=== PATIENT | female | born 1985 | race Caucasian/White ===

== ENCOUNTER → 2019-03-28 | Outpatient (CLI) | payer BC, SELFPAY ==
[2018-10-05 08:33] VITALS: BMI 29.9
[2019-03-28 10:41] LABS: Absolute Lymphocyte Count 0.81 X10^3/uL (0.83-4.51); Absolute Neutrophil Count 3.7 X10^3/uL (2.0-7.7); Basophil# 0.03 X10^3/uL; Basophil% 0.6 % (0-1); Eosinophil# 0.16 X10^3/uL; Eosinophils% 3.1 % (0-5); Hematocrit 42.4 % (37-47); Lymphocyte # 0.81 X10^3/ul (4.0); Lymphocyte % 15.9 % (19-41); Mean Corpuscular Hgb 29.2 pg (27.0-32.0); Mean Corpuscular Volume 88.3 fL (81-99); Mean Platelet Vol. 10.2 fl (6.2-12.0); Monocyte% 7.8 % (0-10); NRBC Flagged by Analyzer 0 % (0-5); Neutrophil % 72.4 % (47-70); Platelet Count 222 K/mm3 (150-450); RBC Distribution Width CV 12.9 % (11.6-14.6); White Blood Count 5.1 K/mm3 (4.4-11.0)
[2019-03-28 11:20] LABS: Anion Gap 8 (5-15); BUN 16 mg/dL (7-18); BUN/Creat Ratio 15.8 RATIO (10-20); Calcium,Total 9.1 mg/dL (8.5-10.1); Chloride 107 mmol/L (98-107); Cholesterol 163 mg/dL (200); Creatinine, Serum 1.01 mg/dL (0.55-1.02); EST Glomerular Filtration Rate 66 mL/min (>60); Est Glom Filt Rate - Afr Amer 80 mL/min (>60); Glucose 90 mg/dL (74-106); High Density Lipoprotein 50 mg/dL; Sodium Level 141 mmol/L (136-145); Thyroid Stim Hormone (TSH) 1.95 uIU/mL (0.358-3.74); Triglycerides 110 mg/dL; Very Low Density Lipoprotein 22 mg/dL (5-40)
[2019-03-28 12:55] LABS: Vitamin D,25 Hydroxy 38.2 ng/mL (29.95-100.01)
== END | disposition home or self-care (01) ==
LOC: MFPLAB 08:28
PROVIDERS: Family Provider Family Medicine; PCP Family Medicine; Referring Provider Family Medicine; Visit Provider Family Medicine
DX: Z00.00 Encounter for general adult medical examination without abnormal findings (principal)
CPT/HCPCS: 36415; 80048; 80061; 82306; 84443; 85025

== ENCOUNTER → 2019-10-18 | Outpatient (CLI) | payer BC, SELFPAY ==
[2018-10-05 08:33] VITALS: BMI 29.9
[2019-10-24 08:09] LABS: Alternaria alternata <0.10 kU/L (Class 0); Aspergillus fumigatus <0.10 kU/L (Class 0); Bahia Grass <0.10 kU/L (Class 0); Bermuda Grass <0.10 kU/L (Class 0); Bluegrass, Kentucky <0.10 kU/L (Class 0); Cat Hair/Dander, Standard <0.10 kU/L (Class 0); Cedar, Mountain <0.10 kU/L (Class 0); Cladosporium herbarum <0.10 kU/L (Class 0); Cockroach, American <0.10 kU/L (Class 0); D farinae Mite 0.54 kU/L (Class I); Dog Epithelia <0.10 kU/L (Class 0); Elm, American White <0.10 kU/L (Class 0); Hazelnut Tree <0.10 kU/L (Class 0); Hickory, White <0.10 kU/L (Class 0); Johnson Grass <0.10 kU/L (Class 0); Maple/Box Elder <0.10 kU/L (Class 0); Mucor racemosus <0.10 kU/L (Class 0); Mugwort <0.10 kU/L (Class 0); Mulberry, White <0.10 kU/L (Class 0); Oak, White <0.10 kU/L (Class 0); Penicillium chrysogen <0.10 kU/L (Class 0); Pigweed, Rough <0.10 kU/L (Class 0); Plantain, English <0.10 kU/L (Class 0); Ragweed, Short/Common <0.10 kU/L (Class 0); Sheep Sorrel(Dock) <0.10 kU/L (Class 0); Stemphylium herbarum <0.10 kU/L (Class 0); Sweet Gum <0.10 kU/L (Class 0); Sycamore, American <0.10 kU/L (Class 0)
[2019-10-24 11:29] LABS: Nettle <0.10 kU/L (Class 0)
== END | disposition home or self-care (01) ==
PROVIDERS: PCP Family Medicine; Referring Provider Family Medicine; Visit Provider Family Medicine
DX: J30.2 Other seasonal allergic rhinitis (principal)
CPT/HCPCS: 36415; 86003

== ENCOUNTER 2019-10-27 22:09 | Emergency (ER) | payer OTHER, BC, SELFPAY ==
[2018-10-05 08:33] VITALS: BMI 29.9
[2019-10-27 22:11] VITALS: BP 133/73; PULSE 85; RESP 17; TEMP 36.3; O2SAT 99; BMI 32.1
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
--- NOTE | 2019-10-27 23:01 | RAD_ITS ---
STUDY: X-RAY - RIGHT KNEE REASON FOR EXAM: Female, 34 years old. right knee pain TECHNIQUE: 4 view(s) of the knee. COMPARISON: None. FINDINGS: Normal visualized distal femur. Normal visualized proximal tibia and fibula. Normal proximal tibiofibular articulation. Normal medial femorotibial compartment. Normal lateral femorotibial compartment. Normal patellofemoral articulation. The soft tissue structures are unremarkable. RAD/Knee 4 or More Views IMPRESSION: Normal x-ray examination of the knee. Electronically Signed: Ruiz Roland MD at 23:28 EDT , Service support ,
--- NOTE | 2019-10-27 23:09 | ED.RN ---
pt called supervisor purification to see if she needed to be drug tested. supervisor purification stated she did not need to be tested.
[2019-10-27 23:47] VITALS: BP 117/95; PULSE 9; RESP 17; O2SAT 97
== END 2019-10-27 23:49 | disposition home or self-care (01) ==
LOC: ED 23:27
PROVIDERS: Emergency Provider Emergency Medicine; PCP Family Medicine
DX: S83.91XA Sprain of unspecified site of right knee, initial encounter (principal); Z87.891 Personal history of nicotine dependence; Y08.89XA Assault by other specified means, initial encounter; Y93.89 Activity, other specified; Y92.89 Other specified places as the place of occurrence of the external cause; Y99.0 Civilian activity done for income or pay
CPT/HCPCS: 73564; 99282

== ENCOUNTER → 2019-11-14 | Outpatient (CLI) | payer OTHER, BC, SELFPAY ==
[2019-11-07 14:34] VITALS: BMI 32.1
--- NOTE | 2019-11-14 09:41 | MRI_ITS ---
STUDY: MRI RIGHT KNEE REASON FOR EXAM: Female, 34 years old. Knee injury, knee pain. TECHNIQUE: Standardized fat and water weighted pulse sequences were obtained in all 3 orthogonal planes. COMPARISON: X-ray 10/27/2019 FINDINGS: Normal medial meniscus. Normal hyaline cartilage of the medial femorotibial compartment. Normal medial femoral condyle and tibial plateau. There is a partial sprain of the MCL with interstitial and periligamentous edema. Normal distal semimembranosus, gracilis and semitendinosus tendons. Normal lateral meniscus. Normal hyaline cartilage of the lateral femorotibial compartment. Normal lateral femoral condyle and tibial plateau. Normal proximal tibiofibular articulation. Normal lateral collateral (fibular) ligament. Normal popliteus tendon. Normal biceps femoris tendon. Normal anterior cruciate ligament (ACL). Normal posterior cruciate ligament (PCL). Normal congruent patellofemoral articulation. Normal hyaline cartilage of the patellofemoral compartment. Normal medial and lateral patellar retinaculum. Normal quadriceps tendon. Normal patellar tendon. Normal Hoffa''s fat pad. There is no joint effusion. The soft tissues are unremarkable. The otherwise visualized osseous structures are unremarkable. MRI/Lower Ext Joint Only (Routine) IMPRESSION: Grade 1 medial collateral ligament tear/sprain. Electronically Signed: Todd Shepherd MD at 12:46 EDT Tel , Service support ,
== END | disposition home or self-care (01) ==
LOC: MRI 09:34
PROVIDERS: PCP Family Medicine; Referring Provider Physician Assistant; Visit Provider Physician Assistant
DX: S83.91XA Sprain of unspecified site of right knee, initial encounter (principal)
CPT/HCPCS: 73721

== ENCOUNTER 2019-12-25 08:00 | Outpatient (RCR) | payer OTHER, SELFPAY ==
[2019-11-14 15:13] VITALS: BMI 32.1
[2019-11-28 07:02] VITALS: BMI 32.1
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
--- NOTE | 2019-12-25 08:31 | HP.PTDCSUM ---
It has been my pleasure to treat VENITA RIOJAS referred by CYNTHIA Russo, with the diagnosis of RIGHT GRADE 1 MCL SPRAIN for a total of 10 visit(s). Discharge Date: 12/25/19 Please see the following information for a summary of their discharge status. Subjective: Doing well no restrictions no pain. Seen DR sue from PT. Actually ran yesterday Right Knee Pain Intensity (Out of 10): 0 % Improvement: 98 Objective/Function: GAIT: NORMAL ELIZABETH. ROM: 0-135 DEGREES. MMT: QUADS/HAM 5/5 Goal 1:: Patient to be I with HEP Goal Progress: Goal Met Goal 2:: Patient to normalize gait pattern Goal Progress: Goal Met Goal 3:: Patient improve right ROM symmtrical right compared to left for function Goal Progress: Goal Met Goal 4:: Patient improve strength quads/hams 4/5 to improve gait and RTW full duty Goal Progress: Goal Met Goal 5:: Patient improve LFES score by 10 points or > to improve QOL AND RTW fullt duty. Goal Progress: Goal Met Plan: D/C Discharge Comments: HEP If there are questions or concerns regarding this patient's physical therapy, please feel free to call me at [phone]. Thank you for the referral of this patient. Sincerely, Beau Hopkins, PT, Cert MDT, OCS
== END 2019-12-25 19:00 | disposition home or self-care (01) ==
LOC: PT 08:00
PROVIDERS: PCP Family Medicine; Referring Provider Physician Assistant; Visit Provider Physician Assistant
DX: S83.91XD Sprain of unspecified site of right knee, subsequent encounter (principal)
CPT/HCPCS: 97110; 97162

== ENCOUNTER → 2020-06-02 16:45 | Outpatient (CLI) | payer BC, SELFPAY ==
[2019-12-25 07:30] VITALS: BMI 32.1
--- NOTE | 2020-06-02 16:49 | RAD_ITS ---
STUDY: X-RAY - RIGHT WRIST REASON FOR EXAM: Female, 35 years old. Right wrist pain, medial side TECHNIQUE: 3 view(s) of the wrist were obtained. COMPARISON: None. FINDINGS: Normal visualized distal radius and ulna. Normal radiocarpal articulation. Normal distal radioulnar articulation. Normal carpal bones. Normal carpal articulations. Normal carpometacarpal articulation of the thumb. Normal second through fifth carpometacarpal articulations. Normal visualized metacarpal bones. The soft tissue structures are unremarkable. RAD/Wrist min 3 Views IMPRESSION: Normal x-ray examination of the wrist. Electronically Signed: Chandni Marques MD at 7:53 EST Tel , Service support ,
== END ==
PROVIDERS: PCP Family Medicine; Referring Provider Family Medicine; Visit Provider Family Medicine
DX: M25.531 Pain in right wrist (principal)
CPT/HCPCS: 73110

== ENCOUNTER → 2022-08-17 | Outpatient (CLI) | payer BC, SELFPAY ==
--- NOTE | 2022-08-17 16:23 | RAD_ITS ---
INDICATION: PAIN EXAMINATION/TECHNIQUE: X-RAY - XR Hip Unilateral with Pelvis when performed; 2-3 Views: AP pelvis and AP and frog-leg right hip COMPARISON: None. FINDINGS: PELVIC BONES: No displaced fracture, destructive or sclerotic lesions. Note that overlapping bowel shadows may however obscure fine detail. Sacroiliac joints are unremarkable. No widening of the pubic symphysis. HIPS: Minimal left hip joint space narrowing and osteophyte formation.] Right hip joint space is preserved.. No displaced fracture seen in this frontal view. SOFT TISSUES: No soft tissue swelling or gas. Bilateral ESSURE devices. RAD/HIP, UNI W/ Pelvis 2-3 Views IMPRESSION: No evidence of displaced pelvic or hip fracture. Minimal left hip degenerative change. Electronically Signed: Ovidio Vann MD at 18:30 EDT ,
== END | disposition home or self-care (01) ==
PROVIDERS: PCP Family Medicine; Referring Provider Family Medicine; Visit Provider Family Medicine
DX: M25.551 Pain in right hip (principal)
CPT/HCPCS: 73502

== ENCOUNTER → 2023-08-28 | Outpatient (CLI) | payer BC, SELFPAY ==
--- NOTE | 2023-08-28 13:50 | RAD_ITS ---
STUDY: X-RAY - PELVIS AND BILATERAL HIPS REASON FOR EXAM: Female, 38 years old. Pain. TECHNIQUE: AP view of the pelvis.? 2 views of the right hip, and 2 views of the left hip were obtained. COMPARISON: None. FINDINGS: There is a non-specific bowel gas pattern. Normal visualized soft tissue structures. Normal bilateral iliac wings, sacroiliac joints and visualized sacrum. Normal bilateral superior and inferior pubic rami. Normal pubic symphysis. Normal bilateral ischial tuberosities. Normal visualized right femoral head. Normal right acetabulum. Normal right hip joint. Normal visualized left femoral head. Normal left acetabulum. Normal left hip joint. RAD/Hips B/L min 2 views w/ Pelvis IMPRESSION: No abnormality of the pelvis or hips. Electronically Signed: Lamont Marie MD at 10:07 EDT ,
--- NOTE | 2023-08-28 13:50 | RAD_ITS ---
STUDY: X-RAY - RIGHT KNEE REASON FOR EXAM: Female, 38 years old. Pain. TECHNIQUE: Lower view(s) of the knee. COMPARISON: None. FINDINGS: Normal visualized distal femur. Normal visualized proximal tibia and fibula. Normal proximal tibiofibular articulation. Normal medial femorotibial compartment. Normal lateral femorotibial compartment. Normal patellofemoral articulation. The soft tissue structures are normal. RAD/Knee 4 or More Views IMPRESSION: Normal x-ray examination of the knee. Electronically Signed: Lamont Marie MD at 10:08 EDT ,
== END | disposition home or self-care (01) ==
PROVIDERS: PCP Family Medicine; Referring Provider Family Medicine; Visit Provider Family Medicine
DX: M25.561 Pain in right knee (principal); M25.551 Pain in right hip; M25.552 Pain in left hip
CPT/HCPCS: 73521; 73564

== ENCOUNTER → 2024-03-05 | Outpatient (CLI) | payer OTHER, SELFPAY ==
[2024-03-05 17:46] LABS: Erythrocyte Sedimentation Rate 2 mm/hr (0-30)
[2024-03-05 18:13] LABS: CRP 3.82 mg/L (0.0-3.0); Rheumatoid Factor < 10.0 IU/mL (<15)
== END | disposition home or self-care (01) ==
PROVIDERS: PCP Family Medicine; Visit Provider Family Medicine
DX: M25.50 Pain in unspecified joint (principal)
CPT/HCPCS: 36415; 85652; 86038; 86140; 86431